=== PATIENT | male | born 1995 | race Caucasian/White ===

== ENCOUNTER 2017-02-15 01:05 | Emergency (ER) | payer SELFPAY ==
--- NOTE | 2017-02-15 01:12 | EDM.PDOC ---
ED HPI GENERAL MEDICAL PROBLEM - General Chief Complaint: Upper Extremity Injury/Pain Stated Complaint: POSSIBLY BROKE ELBOW Time Seen by Provider: 02/15/17 01:15 Source of Information: Reports: Patient History Limitations: Reports: No Limitations - History of Present Illness INITIAL COMMENTS - FREE TEXT/NARRATIVE: right elbow pain after wrestiling and locked elbows with larger partner and ws flipped. C/o feeling like elbow is broke Onset: Today Treatments [employer]: Reports: Cold Therapy Right Elbow Pain Score (Numeric/FACES): 8 - Related Data Allergies Allergy/AdvReac Type Severity Reaction Status Date / Time No Known Allergies Allergy Verified 05/19/16 18:04 Home Meds: Home Meds . [No Known Home Meds] 11/19/15 [History] Past Medical History - Past Health History Medical/Surgical History: Denies Medical/Surgical History Social & Family History - Tobacco Use Smoking Status *Q: Current Some Day Smoker Years of Tobacco use: 2 Packs/Tins Daily: 1 - Caffeine Use Caffeine Use: Reports: Coffee, Energy Drinks, Soda - Recreational Drug Use Recreational Drug Use: No Review of Systems - Review of Systems Review Of Systems: ROS reveals no pertinent complaints other than HPI. ED EXAM, GENERAL - Physical Exam Exam: See Below Exam Limited By: No Limitations General Appearance: Alert, Mild Distress Eye Exam: Bilateral Eye: EOMI Ears: Normal External Exam Nose: Normal Inspection Throat/Mouth: Normal Inspection Head: Atraumatic, Normocephalic Neck: Normal Inspection Respiratory/Chest: No Respiratory Distress, Lungs Clear, Normal Breath Sounds Cardiovascular: Regular Rate, Rhythm Extremities: Normal Inspection, Limited Range of Motion (extension, external rotation increased pain) Neurological: Alert, Oriented, Normal Cognition Skin Exam: Warm, Dry, Intact, Normal Color Course - Vital Signs Last Recorded V/S: Last Vital Signs Temp 99.2 F 02/15/17 01:11 Pulse 110 H 02/15/17 01:11 Resp 20 02/15/17 01:11 BP 126/78 02/15/17 01:11 Pulse Ox 96 02/15/17 01:11 - Radiology Interpretation Free Text/Narrative:: right elbow negative Departure - Departure Time of Disposition: 02:04 Disposition: Home, Self-Care 01 Condition: Good Clinical Impression: Elbow pain, right - Discharge Information Instructions: Elbow Bursitis, [id number] Referrals: PCP,None [Primary Care Provider] - Forms: ED Department Discharge Additional Instructions: ice to elbow tonight sling for comfort up to 48 hours, if continued pain follow up in clinic for re- evaluation and repeat xrays, if continued limited mobility may need physical therapy alternate tylenol and ibuprofen for pain
[2017-02-15 01:15] VITALS: BP 126/78
== END 2017-02-15 02:20 | disposition home or self-care (01) ==
LOC: DL.ED 01:05
DX: M25.521 Pain in right elbow (principal); F17.210 Nicotine dependence, cigarettes, uncomplicated
CPT/HCPCS: 73080-RT; 99283